=== PATIENT | male | born 1980 | race African-American/Black ===

== ENCOUNTER 2021-04-03 16:31 | Emergency (ER) | payer OTHER ==
[~2021-04-03] VITALS: Ht 180.3 cm; Wt 111.1 kg
[2021-04-03 16:33] VITALS: BP 139/73
[2021-04-03] MEDS ORDERED: NOHOMEMEDICATIONS (16:36)
[2021-04-03] MEDS ORDERED: FLEXERIL PO (17:15)
[2021-04-03] MEDS ORDERED: NAPROSYN500 MG PO (17:15)
== END 2021-04-03 17:16 | disposition home or self-care (01) ==
LOC: ER 16:31
DX: S13.9XXA Sprain of joints and ligaments of unspecified parts of neck, initial encounter (principal); V89.2XXA Person injured in unspecified motor-vehicle accident, traffic, initial encounter; Y93.89 Activity, other specified; Y92.89 Other specified places as the place of occurrence of the external cause; Y99.8 Other external cause status